=== PATIENT | male | born 1970 | race Two or more races ===

== ENCOUNTER 2020-09-05 16:19 | Outpatient (CLI) | payer OTHER | END 2020-09-05 17:30 | disposition home or self-care (01) | LOC: OFIC 805 16:19 | PROVIDERS: ATTEND Otolaryngology Otology & Neurotology | DX: K21.00 Gastro-esophageal reflux disease with esophagitis, without bleeding (principal); J02.8 Acute pharyngitis due to other specified organisms ==

== ENCOUNTER 2020-12-26 15:55 | Outpatient (CLI) | payer OTHER | END 2020-12-26 17:22 | disposition home or self-care (01) | LOC: OFIC 805 15:55 | PROVIDERS: ATTEND Otolaryngology Otology & Neurotology | DX: K21.9 Gastro-esophageal reflux disease without esophagitis (principal); J02.8 Acute pharyngitis due to other specified organisms ==